=== PATIENT | male | born 1975 | race Hispanic/Latino ===

== ENCOUNTER 2018-07-07 20:40 | Emergency (ER) | payer SELFPAY ==
[2018-07-07] MEDS ORDERED: Sodium Chloride 0.9% 1,000 ML ONE (21:08)
[2018-07-07 21:13] LABS: #Basophils 0.1 thou/uL (0.0-0.2); #Lymphocytes 1.5 thou/uL (1.20-3.40); #Monocytes 0.7 thou/uL (0.11-0.59); #Neutrophils 7.5 thou/uL (1.40-6.50); %Basophils 1.3 % (0.0-1.0); %Eosinophils 0.4 % (0.0-10.0); %Lymphocytes 15.7 % (21.0-51.0); %Neutrophils 75.6 % (42.0-75.0); Hemoglobin 15.3 g/dL (14.0-18.0); INR-International Normal Ratio 1.2; Mean Corpuscular HGB CONC 35.1 g/dL (32.0-36.0); Mean Corpuscular Hemoglobin 31.2 pg (27.0-31.0); Mean Corpuscular Volume 88.8 fL (78.0-98.0); Mean Platelet Volume 10.3 fL (7.4-10.4); Platelet Count 267 thou/uL (130-400); Prothrombin Time 14.9 SEC (12.0-14.7); RBC Distribution Width 10.9 % (11.5-14.5); Red Blood Cell (RBC) Count 4.92 mill/uL (4.70-6.10); White Blood Cell (WBC) Count 9.9 thou/uL (4.8-10.8)
[2018-07-07 21:20] LABS: ALT (SGPT) 27 U/L (8-55); AST (SGOT) 22 U/L (5-34); Albumin 4.6 g/dL (3.5-5.0); Alkaline Phosphatase 94 U/L (40-150); Anion Gap 17 mmol/L (10-20); BUN (Urea Nitrogen) 14 mg/dL (8.9-20.6); Bilirubin, Total 0.9 mg/dL (0.2-1.2); Calc. Creatinine Clearance 0 mL/min (70-130); Calcium 10.4 mg/dL (7.8-10.44); Carbon Dioxide 26 mmol/L (22-29); Chloride 99 mmol/L (98-107); Estimated GFR-MDRD 78; Globulin 3.2 g/dL (2.4-3.5); Glucose 112 mg/dL (70-105); Potassium 3.3 mmol/L (3.5-5.1); Protein, Total 7.8 g/dL (6.0-8.3); Sodium 139 mmol/L (136-145)
[2018-07-07] MEDS ORDERED: Pantoprazole 40 MG VIAL ONE (21:20)
--- NOTE | 2018-07-07 21:45 | RAD ---
PORTABLE CHEST: 07/07/2018 PROVIDED CLINICAL HISTORY: Epigastric pain. COMPARISON: None. FINDINGS: The cardiac silhouette appears enlarged, which may be at least partially on the basis of the portable technique. There is no focal consolidation, pleural fluid, or pneumothorax apparent. IMPRESSION: Cardiomegaly without evidence for an acute cardiopulmonary process. POS: [facility]
== END 2018-07-07 22:03 | disposition home or self-care (01) ==
LOC: NAV ERS 20:40
DX: K29.71 Gastritis, unspecified, with bleeding (principal); I10 Essential (primary) hypertension; E78.5 Hyperlipidemia, unspecified
CPT/HCPCS: 71045; 80053; 84484; 85025; 85610; 85730; 86850; 86900; 86901; 93005; 96365; C9113; J7050

== ENCOUNTER 2021-04-02 19:55 | Emergency (ER) | payer SELFPAY ==
[~2021-04-02 19:55] MED LIST: Iopamidol 370 76% 100 ML VIAL ONE
[2021-04-02 20:41] LABS: #Basophils 0.1 thou/uL (0.0-0.2); #Lymphocytes 1.4 thou/uL (1.20-3.40); #Monocytes 0.6 thou/uL (0.11-0.59); #Neutrophils 8.4 thou/uL (1.40-6.50); %Basophils 0.7 % (0.0-1.0); %Eosinophils 0.4 % (0.0-10.0); %Lymphocytes 13.6 % (21.0-51.0); %Monocytes 5.8 % (0.0-10.0); %Neutrophils 79.4 % (42.0-75.0); Hemoglobin 15.4 g/dL (14.0-18.0); Mean Corpuscular HGB CONC 34.2 g/dL (32.0-36.0); Mean Corpuscular Hemoglobin 31.9 pg (27.0-31.0); Mean Corpuscular Volume 93.5 fL (78.0-98.0); Platelet Count 374 thou/uL (130-400); RBC Distribution Width 11.1 % (11.5-14.5); Red Blood Cell (RBC) Count 4.82 mill/uL (4.70-6.10); White Blood Cell (WBC) Count 10.5 thou/uL (4.8-10.8)
[2021-04-02] MEDS ORDERED: Pantoprazole 40 MG VIAL ONE (20:45)
[2021-04-02] MEDS ORDERED: Morphine 4 MG/ML VIAL ONE (20:45)
[2021-04-02] MEDS ORDERED: Ondansetron PF 4 MG/2 ML Vial ONE (20:45)
[2021-04-02] MEDS ORDERED: Sodium Chloride 0.9% 1,000 ML ONE (20:45)
[2021-04-02 20:56] LABS: ALT (SGPT) 33 U/L (8-55); AST (SGOT) 18 U/L (5-34); Albumin 3.8 g/dL (3.5-5.0); Alkaline Phosphatase 94 U/L (40-110); Anion Gap 15 mmol/L (10-20); BUN (Urea Nitrogen) 10 mg/dL (8.9-20.6); Bilirubin, Total 0.8 mg/dL (0.2-1.2); Calc. Creatinine Clearance 0 mL/min (70-130); Calcium 9.9 mg/dL (7.8-10.44); Carbon Dioxide 25 mmol/L (22-29); Chloride 105 mmol/L (98-107); Globulin 4.3 g/dL (2.4-3.5); Glucose 124 mg/dL (70-105); Lipase 58 U/L (8-78); Potassium 4.1 mmol/L (3.5-5.1); Protein, Total 8.1 g/dL (6.0-8.3); Sodium 141 mmol/L (136-145)
[2021-04-03] MEDS ORDERED: Ondansetron PF 4 MG/2 ML Vial IVP PRN (01:15)
[2021-04-03] MEDS ORDERED: Dextrose 5 %-0.45 % NaCl 1,000 ML IV SCH (01:15)
[2021-04-03] MEDS ORDERED: Ondansetron ODT 4 MG TAB SL PRN (01:15)
== END 2021-04-03 00:22 | disposition short-term general hospital (02) ==
LOC: NAV ERS 19:55
DX: K56.609 Unspecified intestinal obstruction, unspecified as to partial versus complete obstruction (principal); U07.1 COVID-19; J12.82 Pneumonia due to coronavirus disease 2019; E78.5 Hyperlipidemia, unspecified; I10 Essential (primary) hypertension
CPT/HCPCS: 43752; 74177; 80053; 83690; 84484; 85025; 93005; 96374; 96375; C9113; J2270; J2405; J7050; Q9967